=== PATIENT | male | born 1990 | race Caucasian/White ===

== ENCOUNTER 2017-08-01 20:43 | Emergency (ER) | payer BC ==
[2017-08-01] MEDS ORDERED: Silver Nitrate Applicator Each TOP ONE (21:08)
--- NOTE | 2017-08-01 21:13 | EDM.PDOC ---
ED HPI GENERAL MEDICAL PROBLEM - General Chief Complaint: ENT Problem Stated Complaint: NOSEBLEED Time Seen by Provider: 08/01/17 20:55 Source of Information: Reports: Patient History Limitations: Reports: No Limitations - History of Present Illness INITIAL COMMENTS - FREE TEXT/NARRATIVE: 27 yo male with a pHx of nose bleeds was standing in his home tonight when the L nares began to bleed. Most of the blood came out anteriorly. He is not aware of a hx of HTN or a FHx of HTN. Is on no anticoagulants. Bleeding controlled on arrival. Has had cautery in the past and wants this again. Onset: Today Onset Date: 08/01/17 Onset Time: 19:00 Duration: Minutes:, Resolved Prior to Arrival Location: Reports: Face (L nares) Quality: Reports: Other (no pain) Severity: Moderate Improves with: Reports: Other (time/pressure) Worsens with: Reports: Other (unknown) Context: Reports: Other (recurrent nose bleeds) Associated Symptoms: Reports: No Other Symptoms Treatments INTERNAL AUDIT CONSULTANT: Reports: Other (see below) (none) - Related Data Allergies Allergy/AdvReac Type Severity Reaction Status Date / Time No Known Allergies Allergy Verified 08/01/17 21:07 Home Meds: Home Meds NK [No Known Home Meds] 08/01/17 [History] Past Medical History - Past Health History Medical/Surgical History: Denies Medical/Surgical History ED ROS ENT - Review of Systems Review Of Systems: See Below Constitutional: Reports: No Symptoms HEENT: Reports: Nosebleed Respiratory: Reports: No Symptoms Cardiovascular: Reports: No Symptoms GI/Abdominal: Reports: No Symptoms Skin: Reports: No Symptoms ED EXAM, ENT - Physical Exam Exam: See Below Exam Limited By: No Limitations General Appearance: Alert, WD/WN, No Apparent Distress Eye Exam: Bilateral Eye: Normal Inspection Ears: Normal External Exam, Normal Canal, Hearing Grossly Normal, Normal TMs Nose: Normal Inspection, Dried Blood, Other (bleeding site not clearly identified. ). No: Active Bleeding Head: Atraumatic, Normocephalic Neck: Normal Inspection Course - Vital Signs Text/Narrative:: L anterior septum cauterized with Silver Nitrate. Bacitracin applied. Last Recorded V/S: Last Vital Signs Temp 36.3 C 08/01/17 21:10 Pulse 63 08/01/17 21:10 Resp 16 08/01/17 21:10 BP 154/96 H 08/01/17 21:10 Pulse Ox 97 08/01/17 21:10 - Orders/Labs/Meds Meds: Medications Discontinued Medications Generic Name Dose Route Start Last Admin Trade Name Tameka PRN Reason Stop Dose Admin Bacitracin 1 dose 08/01/17 21:17 Bacitracin Oint 1 Gm TOP 08/01/17 21:18 ONETIME ONE Silver Nitrate 2 each 08/01/17 21:08 Silver Nitrate TOP 08/01/17 21:09 ONETIME ONE Departure - Departure Time of Disposition: 21:30 Disposition: Home, Self-Care 01 Condition: Good Clinical Impression: Epistaxis - Discharge Information Referrals: PCP,None [Primary Care Provider] - Forms: ED Department Discharge
[2017-08-01] MEDS ORDERED: Bacitracin Oint 1 GM U/D Packet TOP ONE (21:17)
== END 2017-08-01 21:34 | disposition home or self-care (01) ==
LOC: JP.ED 20:43
DX: R04.0 Epistaxis (principal)
CPT/HCPCS: 30901; 99283-25